=== PATIENT | female | born 1990 | race Caucasian/White ===

== ENCOUNTER → 2018-09-04 17:13 | Outpatient (CLI) | payer OTHER, MEDICAID, SELFPAY ==
--- NOTE | 2018-09-04 17:16 | DI.RAD.S_ITS ---
PROCEDURE: XR LUMBAR SPINE MIN 4V INDICATIONS: Eval TECHNIQUE: 4 views of the lumbar spine were acquired. COMPARISON: None. FINDINGS: Bones: 5 [id number] vertebrae are present. There is mild scoliosis; otherwise normal bony alignment. No vertebral body compression fractures. No suspicious bony lesions. Soft tissues: Overlying bowel gas pattern is normal. No suspicious soft tissue calcifications. Cholecystectomy clips are noted. Oblique images: No pars defects. IMPRESSION: Mild scoliosis. Dictated by: Brenda Bansal M.D. on 09/04/2018 at 22:51 Approved by: Brenda Bansal M.D. on 09/04/2018 at 22:53
--- NOTE | 2018-09-04 17:16 | DI.MRI.S_ITS ---
PROCEDURE: MR LUMBAR SPINE WO CON INDICATIONS: Low back pain TECHNIQUE: Noncontrast sagittal T1 spin echo and T2 fast echo, sagittal STIR, axial T1 and T2 fast spin echo through the lumbar spine. In cases with scoliosis, additional coronal T2 fast spin echo may be performed. COMPARISON: Outside [facility], CR, XR LUMBAR SPINE 2 OR 3 VIEWS, 02/27/2018, 14:39. [facility], CR, XR LUMBAR SPINE MIN 4V, 09/04/2018, 17:17. FINDINGS: Image quality: Excellent. Alignment and Curvature: There is normal bony alignment. Bone Marrow: Marrow is of normal overall signal. No acute vertebral body compression fractures. Spinal Cord: Conus medullaris terminates at the L1-L2 level. Visualized cord demonstrates normal signal and size. Paraspinous Soft Tissues: No paravertebral masses. L1-L2: Normal appearance. L2-L3: Normal appearance. L3-L4: Normal appearance. L4-L5: Preserved disc height. Moderate disc desiccation. Mild posterior disc bulge. There is mild bilateral facet and moderate hypertrophy of ligamentum flavum. The central canal is patent 2-moderately narrowed. No foraminal stenosis. L5-S1: Preserved disc height. Moderate disc desiccation. Diffuse posterior disc bulge. There is mild bilateral facet. The central canal is mildly narrowed. Mild lateral foraminal stenosis. IMPRESSION: 1. Multilevel degenerative disc disease and facet arthropathy in the lower lumbar spine as described. 2. Mild to-moderate central canal stenosis at L4-L5. 3. Mild lateral foraminal stenosis at L5-S1. Dictated by: Brenda Bansal M.D. on 09/04/2018 at 22:54 Approved by: Brenda Bansal M.D. on 09/06/2018 at 14:25
== END ==
PROVIDERS: PCP Nurse Practitioner Family; Visit Provider Physical Medicine & Rehabilitation
DX: M51.36 Other intervertebral disc degeneration, lumbar region (principal); M51.27 Other intervertebral disc displacement, lumbosacral region; M48.061 Spinal stenosis, lumbar region without neurogenic claudication; M48.07 Spinal stenosis, lumbosacral region; M47.816 Spondylosis without myelopathy or radiculopathy, lumbar region; M47.817 Spondylosis without myelopathy or radiculopathy, lumbosacral region
CPT/HCPCS: 72110; 72148